=== PATIENT | female | born 1995 | race African-American/Black ===

== ENCOUNTER 2018-01-28 23:49 | Emergency (ER) | payer OTHER ==
[~2018-01-28] VITALS: Ht 177.8 cm; Wt 105.0 kg
[2018-01-29 00:08] VITALS: BP 135/79; PULSE 115; RESP 20; TEMP 99.1; O2SAT 100
--- NOTE | 2018-01-29 00:27 | PD ---
HPI Chief Complaint: Diabetic Time Seen by Provider: 00:14 Travel History International Travel<30 days: No Contact w/Intl Traveler<30days: No Traveled to known affect area: No History of Present Illness HPI 22-year-old female with history of diabetes on Lantus, metformin, and glipizide , here for evaluation of an episode of low blood sugar, palpitations, slight headache, and "shakiness" in her head and chest. Patient reports that her blood sugar was 95. In triage it was 188. She denies fevers, chills, cough, recent illness. No abdominal pain, nausea, vomiting, or diarrhea. No chest pain. PFSH Past Medical History Diabetes: Yes (type 2) ?: Unknown LMP: 01/03/18 Social History Tobacco Use: No Allergies-Medications (Allergen,Severity, Reaction): Coded Allergies: No Known Allergies (Unverified , 01/29/18) Reported Meds & Prescriptions Reported Meds & Active Scripts Active Reported Glyburide-Metformin 5-500 mg (Glyburide/Metformin HCl) 5 Mg-500 Mg Tablet 1 PO BID Review of Systems Except as stated in HPI: all other systems reviewed are Neg Physical Exam Narrative GENERAL: Well-developed, well-nourished, comfortable, no apparent distress. SKIN: Focused skin assessment warm/dry. HEAD: Atraumatic. Normocephalic. EYES: Pupils equal and round. No scleral icterus. No injection or drainage. ENT: Mucous membranes pink and moist. NECK: Trachea midline. No JVD. CARDIOVASCULAR: Regular rate and rhythm. RESPIRATORY: No accessory muscle use. Clear to auscultation. Breath sounds equal bilaterally. GASTROINTESTINAL: Abdomen soft, non-tender, nondistended. MUSCULOSKELETAL: No obvious deformities. No clubbing. No cyanosis. No edema. NEUROLOGICAL: Awake and alert. No obvious cranial nerve deficits. Motor grossly within normal limits. Normal speech. PSYCHIATRIC: Appropriate mood and affect; insight and judgment normal. Data Data Last Documented VS Vital Signs Date Time Temp Pulse Resp B/P (MAP) Pulse Ox O2 Delivery O2 Flow Rate FiO2 01/29/18 05:04 01/29/18 04:52 99 01/29/18 03:04 18 100 Room Air 01/29/18 00:08 99.1 Orders Orders Electrocardiogram (01/29/18 00:27) Ckmb (Isoenzyme) Profile (01/29/18:27) Complete Blood Count With Diff (01/29/18:) Comprehensive Metabolic Panel (01/29/18:) Magnesium (Mg) (01/29/18:) Prothrombin Time / Inr (Pt) (01/29/18:) Act Partial Throm Time (Ptt) (01/29/18:) Troponin I (01/29/18:) Chest, Single Ap (01/29/18) Ecg Monitoring (01/29/18:) Iv Access Insert/Monitor (01/29/18:) Oximetry (01/29/18:) Sodium Chloride 0.9% Flush (Ns Flush) (01/29/18 00:30) Ed Urine Pregnancytest Poc (01/29/18:) Urinalysis - C+S If Indicated (01/29/18:27) Sodium Chlor 0.9% 1000 Ml Inj (Ns 1000 M (01/29/18 00:30) D-Dimer (01/29/18 00:56) Influenzae A/B Antigen (01/29/18 00:57) Ibuprofen (Motrin) (01/29/18 01:00) Sodium Chlor 0.9% 1000 Ml Inj (Ns 1000 M (01/29/18 03:00) Thyroid Stimulating Hormone (01/29/18 03:22) Ed Discharge Order (01/29/18 04:56) Labs Laboratory Tests Test 01/29/18 00:36 01/29/18 01:04 01/29/18 03:27 Urine Color YELLOW Urine Turbidity CLEAR Urine pH 5.5 Urine Specific [place] 1.020 Urine Protein TRACE mg/dL Urine Glucose (UA) NEG mg/dL Urine Ketones NEG mg/dL Urine Occult Blood NEG Urine Nitrite NEG Urine Bilirubin NEG Urine Urobilinogen 2.0 MG/DL Urine Leukocyte Esterase NEG Urine RBC 1 /hpf Urine WBC 2 /hpf Urine Squamous Epithelial Cells <1 /hpf Urine Hyaline Casts 1 /lpf Urine Mucus FEW /lpf Microscopic Urinalysis Comment CULT NOT INDICATED White Blood Count 12.6 TH/MM3 Red Blood Count 4.33 MIL/MM3 Hemoglobin 11.6 GM/DL Hematocrit 32.6 % Mean Corpuscular Volume 75.3 FL Mean Corpuscular Hemoglobin 26.8 PG Mean Corpuscular Hemoglobin Concent 35.6 % Red Cell Distribution Width 16.0 % Platelet Count 283 TH/MM3 Mean Platelet Volume 8.0 FL Neutrophils (%) (Auto) 67.5 % Lymphocytes (%) (Auto) 22.3 % Monocytes (%) (Auto) 8.7 % Eosinophils (%) (Auto) 1.0 % Basophils (%) (Auto) 0.5 % Neutrophils # (Auto) 8.5 TH/MM3 Lymphocytes # (Auto) 2.8 TH/MM3 Monocytes # (Auto) 1.1 TH/MM3 Eosinophils # (Auto) 0.1 TH/MM3 Basophils # (Auto) 0.1 TH/MM3 CBC Comment DIFF FINAL Differential Comment Prothrombin Time 10.7 SEC Prothromb Time International Ratio 1.1 RATIO Activated Partial Thromboplast Time 25.5 SEC D-Dimer Quantitative (PE/DVT) 0.35 MG/L FEU Blood Urea Nitrogen 7 MG/DL Creatinine 0.61 MG/DL Random Glucose 221 MG/DL Total Protein 6.5 GM/DL Albumin 2.8 GM/DL Calcium Level 8.2 MG/DL Magnesium Level 1.3 MG/DL Alkaline Phosphatase 89 U/L Aspartate Amino Transf (AST/SGOT) 12 U/L Alanine Aminotransferase (ALT/SGPT) 14 U/L Total Bilirubin 0.2 MG/DL Sodium Level 140 MEQ/L Potassium Level 3.5 MEQ/L Chloride Level 107 MEQ/L Carbon Dioxide Level 25.6 MEQ/L Anion Gap 7 MEQ/L Estimat Glomerular Filtration Rate 151 ML/MIN Total Creatine Kinase 71 U/L Troponin I LESS THAN 0.02 NG/ML Thyroid Stimulating Hormone 3rd Gen 2.020 uIU/ML [facility] Medical Decision Making Medical Screen Exam Complete: Yes Emergency Medical Condition: Yes Interpretation(s) EKG: Sinus, rate 112, normal axis, normal intervals, nonspecific T-wave abnormality, no ST segment abnormality. Differential Diagnosis Hyperglycemia, hypoglycemia, metabolic abnormality, ACS unlikely, acute intracranial abnormality unlikely Narrative Course Vital signs reviewed. Heart rate improved from 115-85 after a liter of normal saline IV. CBC: WBC 12.6, hemoglobin 11.6, hematocrit 32.6, platelets 283. CMP: Random glucose 221, otherwise essentially unremarkable. D-dimer is negative at 0.35 Cardiac enzymes are negative. UA is not suggestive of UTI. Influenza is negative. Chest x-ray read as the lungs are clear. TSH is 2 Patient was made aware of all findings. She was given 2 L of normal saline IV and reports feeling significantly improved. She is stable for discharge home outpatient follow-up with a primary care physician this week. She was advised on when to return to the emergency department. She verbalizes understanding and agreement with plan. Diagnosis Primary Impression: Palpitations Referrals: Primary Care Physician 3 days Additional Instructions: Follow-up with a primary care physician this week. Return to the emergency department for worsening symptoms or any other concerns. Disposition: 01 DISCHARGE HOME Condition: Stable Tone Ma MD Jan 29, 2018 00:27
[2018-01-29] MEDS ORDERED: SODIUM CHLORIDE 0.9% FLUSH 10 ML FLUSH IVF PRN (00:30)
[2018-01-29] MEDS ORDERED: SODIUM CHLOR 0.9% 1000 ML INJ 1,000 ML IV ONE ×2 (00:30→03:00)
--- NOTE | 2018-01-29 00:53 | RADRPT ---
EXAM DATE/TIME: 01/29/2018 00:34 [facility] COMPARISON: No previous studies available for comparison. INDICATIONS : Tachycardia. MEDICAL HISTORY : Diabetes mellitus type II. SURGICAL HISTORY : None. ENCOUNTER: Initial ACUITY: 1 day PAIN SCORE: 0/10 LOCATION: Bilateral chest FINDINGS: A single view of the chest demonstrates the lungs to be symmetrically aerated without evidence of mas s, infiltrate or effusion. The cardiomediastinal contours are unremarkable. Osseous structures are intact. CONCLUSION: The lungs are clear. Gerardo Hess MD on January 29, 2018 at 0:52 Board Certified Radiologist. This report was verified electronically.
[2018-01-29] MEDS ORDERED: GLYB1TAB94 PO (00:55)
[2018-01-29] MEDS ORDERED: IBUPROFEN 600 MG TAB PO ONE (01:00)
[2018-01-29 01:34] LABS: AUTOMATED NEUTROPHIL # 8.5 TH/MM3 (1.8-7.7); BASOPHIL # 0.1 TH/MM3 (0-0.2); BASOPHIL % 0.5 % (0.0-2.0); EOSINOPHIL # 0.1 TH/MM3 (0-0.4); HEMATOCRIT 32.6 % (35.0-46.0); HEMOGLOBIN 11.6 GM/DL (11.6-15.3); LYMPH % 22.3 % (9.0-44.0); LYMPHOCYTE # 2.8 TH/MM3 (1.0-4.8); MEAN CELL VOLUME 75.3 FL (80.0-100.0); MEAN CORPUSCULAR HEMOGLOBIN 26.8 PG (27.0-34.0); MEAN CORPUSCULAR HGB CONC 35.6 % (32.0-36.0); MONO % 8.7 % (0.0-8.0); MONOCYTE # 1.1 TH/MM3 (0-0.9); NEUT % 67.5 % (16.0-70.0); PLATELET COUNT 283 TH/MM3 (150-450); RED BLOOD COUNT 4.33 MIL/MM3 (4.00-5.30); WHITE BLOOD COUNT 12.6 TH/MM3 (4.0-11.0)
[2018-01-29 01:51] LABS: INTERNATIONAL NORMALIZED RATIO 1.1 RATIO; PROTHROMBIN TIME - PATIENT 10.7 SEC (9.8-11.6)
[2018-01-29 01:53] LABS: BILIRUBIN, URINE NEG (NEG); BLOOD, URINE NEG (NEG); GLUCOSE,URINE NEG (NEG); HYALINE CAST, URINE 1 /lpf (RARE); KETONE, URINE NEG (NEG); MUCUS URINE FEW /lpf (OCC); NITRITE,URINE NEG (NEG); PH, URINE 5.5 (5.0-8.5); SQUAMOUS EPITHELIAL CELL URINE <1 /hpf (0-5); URINE COLOR YELLOW (YELLW/STRAW); URINE LEUKOCYTE ESTERASE NEG (NEG)
[2018-01-29 03:04] VITALS: PULSE 103; RESP 18; O2SAT 100
[2018-01-29 04:10] LABS: ALBUMIN 2.8 GM/DL (3.4-5.0); ALT (GPT) 14 U/L (9-42); AST (GOT) 12 U/L (16-38); BICARBONATE 25.6 MEQ/L (21.0-32.0); BLOOD UREA NITROGEN 7 MG/DL (7-18); CALCIUM 8.2 MG/DL (8.5-10.1); CHLORIDE 107 MEQ/L (98-107); CREATININE 0.61 MG/DL (0.50-1.00); GLOMERULAR FILTRATION RATE 151 ML/MIN (>89); GLUCOSE,RANDOM 221 MG/DL (74-106); MAGNESIUM 1.3 MG/DL (1.5-2.5); SODIUM (NA) 140 MEQ/L (136-145)
[2018-01-29 04:14] LABS: ALKALINE PHOSPHATASE 89 U/L (45-117); TOTAL BILIRUBIN ADULT 0.2 MG/DL (0.2-1.0); TOTAL PROTEIN 6.5 GM/DL (6.4-8.2); TROPONIN I LESS THAN 0.02 NG/ML (0.02-0.05)
[2018-01-29 04:52] VITALS: PULSE 99
--- NOTE | 2018-01-29 09:06 | EKG ---
Date Performed: 01/29/2018 Time Performed: 00:51:52 PTAGE: 22 years EKG: SINUS TACHYCARDIA NONSPECIFIC ST & T-WAVE ABNORMALITY ABNORMAL RHYTHM ECG NO PREVIOUS TRACING DOCTOR: Rickie Fields Interpretating Date/Time 01/29/2018 09:03:54
== END 2018-01-29 05:16 | disposition home or self-care (01) ==
LOC: EDBD 23:49 → NEPC 23:49
DX: R00.2 Palpitations (principal); E11.649 Type 2 diabetes mellitus with hypoglycemia without coma; R94.31 Abnormal electrocardiogram [ECG] [EKG]; R51 Headache; Z79.4 Long term (current) use of insulin
CPT/HCPCS: 71045; 80053; 81001; 82550; 83735; 84443; 84484; 84703; 85025; 85379; 85610; 85730; 87804; 93005; 96360; 96361; 99285; J7030